=== PATIENT | female | born 1985 | race Caucasian/White ===

== ENCOUNTER 2018-11-27 19:15 | Inpatient (IN) | payer OTHER, SELFPAY ==
[2018-11-27 18:55] VITALS: BMI 23.9
[2018-11-27 20:09] LABS: Mean Corp Hgb Conc 32.4 g/gl (32-36); Mean Corpuscular Hgb 29.1 pg (27.0-32.0); Mean Corpuscular Volume 89.9 fL (81-99); Mean Platelet Vol. 10.6 fl (6.2-12.0); Platelet Count 175 K/mm3 (150-450); RBC Distribution Width CV 13.9 % (11.6-14.6); RBC Distribution Width SD 45.6 fl (35.1-43.9); Red Blood Count 3.78 M/mm3 (4.2-5.4); White Blood Count 10.1 K/mm3 (4.4-11.0)
[2018-11-27 20:10] LABS: Scan Indicated on CBC? Y/N NO
[2018-11-27] MEDS: Lactated Ringers 1,000 ML 50 ML IV (22:40)
[2018-11-27] MEDS: Oxytocin 30 units/NS 500 ml 30 UNITS/500 ML IV.SOLN 334 UNITS IV (22:42)
--- NOTE | 2018-11-27 22:56 | PCM.OB.VAG ---
Vaginal Delivery Maternal Presentation: Active Labor 39 4/7 wk early labor Amniotic Membrane Rupture Type: Artificial Amniotic Fluid Description: Clear - very scant fluid Final JOSE: 11/30/18 Gestational age: 39 Weeks and 4 Days Date of Procedure: 11/27/18 Pre-Operative Diagnosis: 39 4/7 wk labor Post-Operative Diagnosis: same Surgery/ Procedure Performed: Spontaneous Vaginal Delivery Type of Anesthesia: None, Local with 1% lidocaine - for repair of laceration Description of Procedure: of a berry viable male over intact perineum to lacerations. Head delivered OSBALDO Nuchal cord x one reduced. shoulders delivered easily. to maternal abdomen. Cord clamped x two and cut. PP exam; 2nd deg vaginal to perineal laceration noted. repaired under 1% lidocaine to hemostatic, intact with 3-0 Vicryl No other repair needed, no other laceration Placenta delivered by spont expulsion. 3V cord, normal appearing, intact with trailing membranes EBL 350 cc Pt and tolerated delivery well. To recovery, stable condition Ray Adarsh counts correct x two. Presentation: Vertex, OSBALDO Placental Delivery Description: Spontaneous Cord Vessel Description: 3 Vessels Nuchal Cord Compression: Without compression Cord Entanglement: Around neck x 1, loose Estimated Blood Loss: 350 A gender: Male (1 minute): 8 (5 minute): 9 Episiotomy Description: None Laceration: Midline, Perineal Extension/lac, Vaginal Extension/lac, 2nd degree Medications given after delivery: IV Pitocin Complications: None
--- NOTE | 2018-11-27 23:04 | PCM.DCVAG ---
Discharge Diet: No Restrictions Discharge Activity: May Shower, May Take a Tub Bath May resume sexual activity in: 4-6 weeks Additional Activity Instructions:: Nothing in the vagina for 4-6 weeks. You may return to work/school in 6 weeks. Additional Instructions: If you experience any of the following, contact your healthcare provider. Bleeding that soaks a pad every hour for 2 hours Fever 100.4 or higher Unrelieved abdominal pain Problems urinating (including inability to urinate or burning while urinating). Visual changes Severe headache Flu-like symptoms Pain or redness in one of both of your breasts Pain, warmth, tenderness or swelling in your legs, especially the calf area Frequent nausea and vomiting Symptoms of depression or anxiety If you experience any of the following, call 911 or go to the nearest Emergency Room. Chest pain Problems breathing Seizure activity Partial or complete paralysis of a body part, slurred speech, weakness or drooping of the face, or a sudden inability to walk or hold your balance Allergies/Adverse Reactions: Allergies No Known Allergies Allergy (Verified 11/27/18 19:50) Medications to take at Discharge Ferrous Sulfate [Iron] 325 mg PO DAILY 11/27/18 Pnv No.95/Ferrous Fum/Folic AC [ Multivitamin Tablet] 1 each PO DAILY 11/27/18 Please Follow Up With: Ashely Lan MD - [phone] When: Call to make an appointment with your doctor in 6 weeks. Primary Care Physician: Hans Costa MD [Primary Care Provider] - Test Results: Test results from this visit will be discussed in further detail at your follow-up appointment, if applicable. Proposed Discharge Date: 11/29/18
--- NOTE | 2018-11-27 23:05 | DCINST_ITS ---
Discharge Diet: No Restrictions Discharge Activity: May Shower, May Take a Tub Bath May resume sexual activity in: 4-6 weeks Additional Activity Instructions:: Nothing in the vagina for 4-6 weeks. You may return to work/school in 6 weeks. Additional Instructions: If you experience any of the following, contact your healthcare provider. * Bleeding that soaks a pad every hour for 2 hours * Fever 100.4 or higher * Unrelieved abdominal pain * Problems urinating (including inability to urinate or burning while urinating). * Visual changes * Severe headache * Flu-like symptoms * Pain or redness in one of both of your breasts * Pain, warmth, tenderness or swelling in your legs, especially the calf area * Frequent nausea and vomiting * Symptoms of depression or anxiety If you experience any of the following, call 911 or go to the nearest Emergency Room. * Chest pain * Problems breathing * Seizure activity * Partial or complete paralysis of a body part, slurred speech, weakness or drooping of the face, or a sudden inability to walk or hold your balance Allergies/Adverse Reactions: Allergies No Known Allergies Allergy (Verified 11/27/18 19:50) Medications to take at Discharge Ferrous Sulfate [Iron] 325 mg PO DAILY 11/27/18 Pnv No.95/Ferrous Fum/Folic AC [ Multivitamin Tablet] 1 each PO DAILY 11/27/18 Please Follow Up With: Ashely Lan MD - [phone] When: Call to make an appointment with your doctor in 6 weeks. Primary Care Physician: Hans Costa MD [Primary Care Provider] - Test Results: Test results from this visit will be discussed in further detail at your follow- up appointment, if applicable. Proposed Discharge Date: 11/29/18
[2018-11-27] MEDS: Oxytocin 30 units/NS 500 ml 30 UNITS/500 ML IV.SOLN 167 UNITS IV (23:12)
[2018-11-28] MEDS: 0.9% Saline Lock 10 ML Syringe IV (00:18)
[2018-11-28] MEDS: Naproxen 250 MG Tablet PO ×3 (00:18→23:15)
[2018-11-28 03:05] VITALS: BP 121/67; PULSE 69; RESP 14; TEMP 36.5
[2018-11-28 07:55] VITALS: BP 119/62; PULSE 82; RESP 16; TEMP 36.8
--- NOTE | 2018-11-28 08:09 | PCM.PN.OB ---
Subjective: PPD#1 Doing well. Some cramping. Has an herbal spray to use to perineum (witch nalini, cucumber extract, glycerol, etc) and asking if ok to use. Nursing. Potential for dischg home today if requests. Planning circumcision. Objective: Lying in bed, resting. NAD - Physical Exam General: Alert, Oriented x3, Cooperative, No apparent distress Neck: Supple Abdomen: Soft - Fundus firm NT at 2 cm inf to umbilicus Neurological: Cranial nerves II-XII grossly intact Psych/Mental Status: Normal Affect Vital Signs Temp Pulse Resp BP 97.7 F L 69 14 121/67 H 11/28/18 03:05 11/28/18 03:05 11/28/18 03:05 11/28/18 03:05 Oxygen Delivery Method Room Air Weight: 61.3 kg Body Mass Index (BMI) 23.9 Intake and Output for Last 24 Hours 11/26/18 11/27/18 11/28/18 23:59 23:59 23:59 Output Total 700 / 700 Balance -700 / -700 Laboratory Tests Past 24 Hrs 11/27/18 11/27/18 19:55 19:55 WBC 10.1 RBC 3.78 L Hgb 11.0 L Hct 34.0 L MCV 89.9 MCH 29.1 MCHC 32.4 RDW 13.9 RDW Differential 45.6 H Plt Count 175 MPV 10.6 Blood Type O POSITIVE Antibody Screen NEGATIVE Medical Necessity - Tobacco Use Smoking Status: Never smoker Assessment/Plan PPD#1 Stable pp. Continue routine care.
[2018-11-28] MEDS: Prenatal Vits Tablet 1 TABLET PO (12:52)
[2018-11-28 12:55] VITALS: BP 111/66; PULSE 82; RESP 20; TEMP 37.2; O2SAT 95
[2018-11-28] MEDS: Acetaminophen 500 MG Tablet 1000 MG PO (13:25)
[2018-11-28 16:20] VITALS: BP 118/54; PULSE 87; RESP 16; TEMP 37.2
[2018-11-28 19:36] VITALS: BP 130/57; PULSE 86; RESP 17; TEMP 37.1; O2SAT 98
[2018-11-29 01:49] VITALS: BP 111/64; PULSE 81; RESP 15; TEMP 36.4; O2SAT 95
--- NOTE | 2018-11-29 06:21 | PCM.PN.OB ---
Subjective: PPD#2 Doing well. States happy she stayed last night. Baby is nursing better. Circumcision done. No concerns voiced today. - Physical Exam General: Alert, Oriented x3, Cooperative, No apparent distress HEENT: Atraumatic Neck: Supple Psych/Mental Status: Normal Affect Vital Signs Temp Pulse Resp BP Pulse Ox 97.6 F L 81 15 111/64 95 11/29/18 01:49 11/29/18 01:49 11/29/18 01:49 11/29/18 01:49 11/29/18 01:49 Oxygen Delivery Method Room Air Weight: 61.3 kg Body Mass Index (BMI) 23.9 Intake and Output for Last 24 Hours 11/27/18 11/28/18 11/29/18 23:59 23:59 23:59 Output Total 700 / 700 Balance -700 / -700 Medical Necessity - Tobacco Use Smoking Status: Never smoker Assessment/Plan PPD#2 Stable pp. Discharge home today. RTO in 6 wk for pp check, prn sooner.
[2018-11-29] MEDS: Naproxen 250 MG Tablet PO (07:39)
[2018-11-29 08:12] VITALS: BP 116/68; PULSE 80; RESP 16; TEMP 36.6; O2SAT 97
== END 2018-11-29 09:20 | disposition home or self-care (01) | DRG 807 ==
LOC: WPOUT 19:21
PROVIDERS: Admitting Provider Obstetrics & Gynecology; Family Provider Family Medicine; PCP Family Medicine; Referring Provider Obstetrics & Gynecology; Visit Provider Obstetrics & Gynecology
DX: O69.81X0 Labor and delivery complicated by cord around neck, without compression, not applicable or unspecified (principal); Z37.0 Single live birth; O70.1 Second degree perineal laceration during delivery; Z3A.39 39 weeks gestation of pregnancy
CPT/HCPCS: 59025; 59050; 85027; 86850; 86900; 99218; J7120; A4216; G0378

== ENCOUNTER → 2019-05-26 12:53 | Outpatient (CLI) | payer OTHER, SELFPAY | PROVIDERS: Family Provider Family Medicine; PCP Family Medicine; Referring Provider Family Medicine; Visit Provider Family Medicine | DX: J02.9 Acute pharyngitis, unspecified (principal) | CPT/HCPCS: 87070 ==

== ENCOUNTER → 2021-08-16 08:57 | Outpatient (CLI) | payer OTHER, SELFPAY ==
[2021-08-16 10:41] LABS: Anion Gap 5 (5-15); BUN 9 mg/dL (7-18); BUN/Creat Ratio 15.7 RATIO (10-20); Calcium,Total 9.2 mg/dL (8.5-10.1); Chloride 105 mmol/L (98-107); Cholesterol 142 mg/dL (200); Creatinine, Serum 0.58 mg/dL (0.55-1.02); EST Glomerular Filtration Rate 126 mL/min (>60); Est Glom Filt Rate - Afr Amer 153 mL/min (>60); Glucose 91 mg/dL (74-106); High Density Lipoprotein 56 mg/dL; Magnesium 2.3 mg/dL (1.6-2.6); Potassium 3.6 mmol/L (3.5-5.1); Sodium Level 137 mmol/L (136-145); Thyroid Stim Hormone (TSH) 1.27 uIU/mL (0.358-3.74); Triglycerides 88 mg/dL; Very Low Density Lipoprotein 18 mg/dL (5-40)
[2021-08-16 10:43] LABS: Vitamin D,25 Hydroxy 32.8 ng/mL
== END ==
PROVIDERS: PCP Family Medicine; Referring Provider Family Medicine; Visit Provider Family Medicine
DX: Z00.00 Encounter for general adult medical examination without abnormal findings (principal)
CPT/HCPCS: 36415; 80048; 80061; 82306; 83735; 84443; 86769

== ENCOUNTER → 2022-12-04 | Outpatient (CLI) | payer BC, SELFPAY ==
--- NOTE | 2022-12-04 14:33 | US_ITS ---
STUDY: ULTRASOUND BREAST - RIGHT REASON FOR EXAM: Female, 37 years old. Pain in the right breast. TECHNIQUE: Axial and longitudinal images of the RIGHT breast were performed with a high resolution ultrasound transducer. # OF IMAGES: 72 COMPARISON: Comparison is made with prior mammogram dated December 04, 2022. FINDINGS: RIGHT Breast: Dense fibroglandular tissue. The upper outer quadrant of the right breast was examined. There are 2, adjacent small benign-appearing axillary lymph nodes. The larger measures 9 mm x 4 mm x 5 mm. At the 9:00 position of the breast at 3 and 4 cm from the nipple. There are 3 small adjacent cysts. The largest measures 1.1 cm x 1.3 cm x 0.4 cm. US/Breast Limited Unilateral IMPRESSION: 3 adjacent subcentimeters cysts at the 9:00 position of the breast ASSESSMENT CATEGORY: BIRADS Category 2: Benign. A letter regarding these results will be sent to the patient by the facility within 30 days. Electronically Signed: Teddy Jones MD at 13:22 EST ,
--- NOTE | 2022-12-04 14:33 | BI_ITS ---
MAMMOGRAPHY - BILATERAL DIAGNOSTIC REASON FOR EXAM: Female, 37 years old. Chronic right breast pain in the deep upper lateral aspect of the breast. PERTINENT HISTORY: Non-contributory. TECHNIQUE: Digital bilateral breast rosa elena (3D mammographic acquisition) in the CC and MLO projections. 2-D mediolateral oblique (MLO) and craniocaudad (CC) views of both breasts were obtained. CAD: Full Field Digital Mammography with Computer Added Detection was performed. COMPARISON: None. Baseline examination. FINDINGS: Breast Composition: The breasts are extremely dense, which lowers the sensitivity of mammography. There are no dominant masses or suspicious calcifications. No other significant abnormalities are identified. BI/DIAG MAMM W/CAD, BILAT IMPRESSION: Negative diagnostic mammogram. With the patient''s history of pain in the deep upper lateral aspect of the right breast, correlation with ultrasound is recommended. ASSESSMENT CATEGORY: BIRADS Category 0: Incomplete. Need additional imaging evaluation. A letter regarding these results will be sent to the patient by the facility within 30 days. Approximately 10% of breast cancers are not detected by mammography. A normal mammogram should not delay biopsy of a clinically suspicious abnormality. Electronically Signed: Teddy Jones MD at 15:18 EST ,
== END | disposition home or self-care (01) ==
PROVIDERS: PCP Family Medicine; Visit Provider Student in an Organized Health Care Education/Training Program
DX: N64.4 Mastodynia (principal); G89.29 Other chronic pain
CPT/HCPCS: 76642; 77062; 77066; G0279

== ENCOUNTER 2023-10-22 16:38 | Emergency (ER) | payer BC, SELFPAY ==
[2023-10-22 16:39] VITALS: BP 117/63; PULSE 88; RESP 18; TEMP 36.2; O2SAT 100; BMI 21.3
--- NOTE | 2023-10-22 17:16 | EDS_ITS ---
HPI History of Present Illness Chief Complaint: Chest Other Informant: patient Onset/Context/Timing Onset: Days Activity at onset: sudden Timing: Continuous Quality: Positive for Aching Location: Left Parasternal Current Severity: Mild Maximum Severity: Mild Worsened By: Movement of Arm and Movement of Torso Relieved By: Remaining Still Associated Symptoms: Negative for Nausea, Vomiting, Diaphoresis, Dyspnea, Cough, Fever or Acid Reflux Narrative Narrative: Healthy 38-year-old female no seen past medical history currently on no medications. Her children were sled riding she went to [facility] and sled and basically got hit by the sled lost her balance and fell forward onto her nose and her chest wall on the ground. This occurred on Thursday. She initially had sternal and left parasternal discomfort now is primarily left parasternal prior to the fall she was feeling fine having no chest pain. This is not associated with exertion is worse with movement of her torso or arms. Denies any trouble breathing. Prior Similar Symptoms: No CVD Risk Factors: Negative for Hypertension, Diabetes, Hypercholesterolemia, Family History 1' </=55 or Smoking PE Risk Factors: Negative for Recent Travel/Surgery, Recent Immobilization, Prior DVT or PE, Cancer or OCP + Smoking + >/=35 TAD Risk Factors: Negative for Marfan's Syndrome PFSH PFSH Medical History no medical history no medical history Home Medications ferrous sulfate 325 mg (65 mg iron) tablet (iron) 325 mg PO DAILY 11/27/18 [History Last Taken 11/27/18] vit no.95-ferrous fumarate 28 mg-folic acid 800 mcg tablet ( Multivitamins) 1 ea PO DAILY 11/27/18 [History Last Taken 11/27/18] Allergy/AdvReac Type Severity Reaction Status Date / Time No Known Allergies Allergy Verified 10/22/23 16:39 Social History Smoking Status: Never smoker ROS ROS ED ROS Narrative Prior to the fall she was having no symptoms now she is having chest wall discomfort. Review of Systems ROS Unobtainable: Denies due to encephalopathy Constitutional Constitutional ED: Denies chills or fever(s) Eyes Eyes: Reports none ENT ENT ED: Denies ear pain Cardiovascular Cardiovascular: Reports chest pain Respiratory/Chest Respiratory/Chest: Denies cough or dyspnea Gastrointestinal Gastrointestinal: Denies abdominal pain Genitourinary Genitourinary ED: Denies dysuria or hematuria Musculoskeletal Musculoskeletal: Denies arthralgias Integumentary Denies abscess Neurologic Neurologic: Denies headache(s) Psychiatric Psychiatric: Denies anxiety or depression Endocrine Endocrinology: Denies cold intolerance Hematologic/Lymphatic Hematologic/Lymphatic: Denies easy bleeding, easy bruising or lymphadenopathy Allergic/Immunologic Allergic/Immunologic ED: Denies mouth swelling, tongue swelling or urticaria EXAM Physical Exam Narrative Exam Narrative: 30-year-old female vital signs are stable afebrile. Pulse ox 100% on room air no signs hypoxia no distress. H EENT exam normal atraumatic. Pupils round re active light. No signs of trauma to her face or scalp. C-spine nontender trachea midline. Full range of motion her neck. Back nontender. Spine nontender. Lungs clear to auscultation bilaterally. Heart regular rhythm rate about 90 no murmur. She has reproducible mild left parasternal and left anterior rib tenderness. There is no crepitance or subcu air there is no bruising on her chest wall there is no mackey on her chest wall. Exam is consistent with a chest wall strain. Abdomen soft nontender. Pelvic girdle intact. Moving all 4 extremities. Nontender. No deformity. Full range of motion. Neurovascular intact. Neurologically she is awake and alert with no focal motor deficits. Const Vital Signs: 10/22/23 16:39 Temperature 97.2 F L Temperature Source Temporal Pulse Rate 88 Respiratory Rate 18 Blood Pressure 117/63 Blood Pressure Mean 81 Pulse Ox 100 Positive well nourished and well developed; Negative for obese, cachectic, contractures or unkempt General Appearance ED: well developed and NAD; Negative for unkempt, cachectic, contractures or pallor Nutritional Appearance: Negative for cachectic or obese HEENT Reports moist mucous membranes normocephalic and atraumatic; Negative for trauma or tenderness Eyes PERRL and EOMs intact bilaterally General Eye ED: Negative for pale conjunctiva, scleral icterus or other Neck no lymphadenopathy, supple and no JVD Chest Wall inspection of chest normal; Negative for palpation of chest normal Chest Narrative: Left parasternal chest wall tenderness. Mild. No crepitance. No subcu air. No bruising or mackey. Chest: tenderness Resp normal respiratory effort and clear to auscultation bilaterally Effort and Inspection: Negative for respiratory distress Auscultation: Negative for rales, rhonchi or wheezes Cardio regular rate, regular rhythm, S1 normal heart sound, S2 normal heart sound and no murmurs Rate: Negative for bradycardia or tachycardic Rhythm: Negative for abnormal rhythm Peripheral Pulses: pulses 2+ throughout GI normal to inspection, nondistended, normoactive bowel sounds, soft to palpation, non-tender, non-distended and no masses Back/Spine no CVA tenderness and no thoracic nor lumbar tenderness General Back: Negative for CVA tenderness Cervical Spine: Negative for cervical spine tenderness Extremity normal to inspection General Extremety ED: Negative for edema, pulses abnormal or tenderness General Extremity: Negative for edema or pulses abnormal Neuro oriented x3 and CN's II-XII intact bilaterally Sensorium / Orientation: awake, alert, oriented to person, oriented to place and oriented to time; Negative for confused, lethargic or stuporous Motor Exam: strength 5/5 throughout Psych mental status grossly normal Appearance: Negative for unkempt Attitude: No agitated Mood & Affect: Negative for depressed, anxious or tearful Skin no rashes or lesions noted and no wounds General Skin Exam: Negative for jaundice or pallor Rashes: No rashes noted Trauma: Negative for abrasion or laceration MDM MDM MDM Narrative Medical decision making narrative: 38-year-old with injury to her chest wall on Thursday. X-ray being obtained. This is not cardiac she does not have any symptoms so she fell and hit her chest on the ground. She has no DVT or PE history or risk factors and again is not back. She has reproducible chest wall pain. Rule out rib fracture or sternal fracture. Repeat exam patient doing well at 5:45 PM. We went over her normal chest x-ray she will be discharged home. Motrin for pain. Increase activity as tolerated follow-up if not improving. History & Record Review Discussion w/independent historian: Patient Additional record(s) reviewed:: Prior inpatient record, Prior outpatient record, Prior ED visit and Prior labs Radiography Chest X-Ray - ED: 2 View, Read by ED Physician, Heart, Lungs, Mediastinum, Bony Structures and No Acute Disease Diagnostic Testing: Chest x-ray, 2 views, AP and lateral, interpreted by myself shows no acute abnormality. No rib fractures no sternal fracture normal cardiac silhouette. Normal mediastinum. Normal lung thompson. No pneumothorax. No pleural effusions. Discharge Plan Triage Chief Complaint: Chest Other ED Provider: David Bolton Dx/Rx/DC Orders Clinical Impression: Chest wall contusion, Fall Instructions: ED Soft Tissue Contusion Prescriptions: No Action PNV cmb#95-ferrous fumarate-FA [ Multivitamins] 1 EACH tablet 1 ea PO DAILY ferrous sulfate [iron] 325 MG tablet 325 mg PO DAILY Primary Care Provider: Hans Costa Referrals: Hans Costa MD [Primary Care Provider] - 1 Week if not improving Activity Restrictions/Additional Instructions: Chest wall contusion. Ice to your chest wall. Motrin for pain and inflammation. Tylenol for pain. This will be sore but should continually improve. Your chest x-ray was normal there is no signs of any broken ribs. 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 Follow-up with your doctor if not improving. Disposition Disposition: Home, Self Care
--- NOTE | 2023-10-22 17:27 | RAD_ITS ---
INDICATION: chest wall minor trauma with sternal pain EXAMINATION/TECHNIQUE: X-RAY - XR Chest 2 Views COMPARISON: None. FINDINGS: LINES/DEVICES: None. LUNGS: No consolidation, edema or effusion. No pneumothorax. MEDIASTINUM AND CARDIOVASCULAR STRUCTURES: Cardiac silhouette not enlarged. Central airways and mediastinal contour are unremarkable. BONES AND SOFT TISSUES: Unremarkable. No evidence of sternal fracture on the lateral view. RAD/Chest PA and Lateral IMPRESSION: No radiographic evidence of acute cardiopulmonary disease. Electronically Signed: Geo Tom MD at 17:53 EST ,
--- OUTSIDE RECORDS SUMMARY | 2023-10-22 17:32 | XMS RPT_ITS | CCD ---
Author Name Unknown Address [address] [place] [address] Organization [facility] Care Team Providers Care Supervisor Print Line Name Role Phone Paulo Cruz Unavailable Hans Stratton MD Primary Care Provider HANS STRATTON Primary Care Unavailable HANS STRATTON Primary Care Unavailable Medications Current Medications Medication Drug Class(es) Dates Sig (Normalized) Sig (Original) amoxicillin 875 mg / clavulanate 125 mg oral tablet (1 source) Penicillin-class Antibacterial Start: 08-25-2022 End: 09-01-2022 take 1 tablet by mouth twice daily amoxicillin-clav ulanic acid (AUGMENTIN) 875-125 mg per tablet Indications: Bacterial sinusitis Take 1 tablet by mouth twice daily for 7 days. 14 tablet 0 08/25/2022 09/01/2022 Active Problems Problem Classification Problem Date Documented Da te Episodic/Chronic Other upper respiratory infections (1 source) Bacterial sinusitis; Translations: [Chronic sinusitis, unspecified] Chronic Results Test Name Value Interpretation Reference Range Facil ity Vital Signs Date Time Vital Sign Value Performing Clinician Gui everett 08-25-2022 09:17-0500 Body temperature 98.29 [degF] Gladys Arenas APRN.WHITE LEAD GRINDER Work Phone: [facility] 08-25-2022 09:17-0500 Body weight 48.72 kg Gladys Arenas APRN.WHITE LEAD GRINDER Work Phone: [facility] 08-25-2022 09:17-0500 Diastolic blood pressure 64 mm[Hg] Gladys Arenas PRESSING DEPARTMENT SUPERVISOR.WHITE LEAD GRINDER Work Phone: [facility] 08-25-2022 09:17-0500 Heart rate 111 /min Gladys Arenas APRN.CYNTHIA Work Phone: [facility] 08-25-2022 09:17-0500 Respiratory rate 18 /min Gladys Arenas APRN.CYNTHIA Work Phone: [facility] 08-25-2022 09:17-0500 SaO2% (BldA) [Mass fraction] 99 % Gladys Arenas APRN.WHITE LEAD GRINDER Work Phone: [facility] 08-25-2022 09:17-0500 Systolic blood pressure 108 mm[Hg] Gladys Arenas APRN.WHITE LEAD GRINDER Work Phone: [facility] Encounters Encounter Date Encounter Type Care Provider Facility Start: 12-18-2022 End: 12-18-2022 [facility] Start: 08-25-2022 End: 08-25-2022 ambulatory [facility] Facility:[facility] Start: 08-25-2022 End: 08-25-2022 Patient encounter procedure Gladys Arenas APRN.CYNTHIA Work Phone: [facility] Plan of Treatment Date Care Activity Detail Author Start: 05-29-2022 Influenza vaccination INFLUENZA (#1) [facility] Start: 09-28-2021 DEPRESSION ASSESSMENT DEPRESSION ASS ESSMENT [facility] Start: 2015 HPV TESTING HPV TESTING [facility] Start: 2006 PAP TESTING PAP TESTING [facility] Start: 2004 Urine microalbumin profile DTAP,TDAP ,TD (1 - Tdap) [facility] Start: 2003 HEPATITIS C SCREENING HEPATITIS C SC MARISELNING [facility] Start: 2003 HIV SCREENING HIV SCREENING [facility] Start: 1985 COVID-19 VACCINE (#1) COVID-19 VACCI NE (#1) [facility] Start: 1985 HEPATITIS B (1 of 3 - 3-dose series) HEPATITIS B (1 of 3 - 3-dose series) [facility] Payers Date Payer Category Payer Unknown SANJEEV RODRIGUEZ SS PPO [id number] 2021-Present [phone] [id number] [place] [address] PPO [id number] 2021 Unknown [id number] Social History Date Type Detail Facility Start: 08-25-2022 Tobacco smoking stat us CTIS Never smoked tobacco [facility] Start: 08-25-2022 Tobacco use and exposure Smokeless tobacco non-user [facility] Start: 08-25-2022 Alcohol intake Not Asked Keith shukla [facility] Start: 1985 Sex Assigned At Not on file [facility] Start: 08-15-2022 End: 08-25-2022 Exposure to SARS-CoV-2 (event) Not sure [facility] Work Phone: Progress note 12-18-2022 Note Date & Type Note Facility 12-18-2022 Note HNO ID: [id number] Author: Lindsay Mckeon LPN Service: ? Author Type: ? Type: Progress Notes Filed: 12/18/2022 8:19 PM Note Text: Ambulatory Ear Lavage Pre-treatment: Warm water Treatment: Both ears Equipment and Irrigation solution and Volume used: Single use syringe with single use irrigation tip Return flow appearance: Yellow Patient tolerated procedure: yes, mild pain d/c irrigation Post-treatment: Post Irrigation Post-treatment: Ear Canal/Tympanic membrane assessed by KEEGAN Brown. Lindsay Mckeon LPN [facility] Progress note 12-18-2022 Note Date & Type Note Facility 12-18-2022 Note HNO ID: [id number] Author: Hanane Brown PA-C Service: ? Author Type: Physician Printer [employer] Type: Progress Notes Filed: 12/18/2022 4:44 PM Note Text: This note was created using MobileWeaverriter. Subjective Nikhil Roy is a 37 year old female. HPI Presents with sore throat, right ear pain, body aches over the past 4 days. Minimal cough. Her son was fighting similar symptoms. No diarrhea or vomiting. She has noticed some postnasal drip as well. Review of Systems Constitutional: Positive for chills and fever. HENT: Positive for ear pain, postnasal drip and sore throat. Negative for ear discharge. Respiratory: Positive for cough. Cardiovascular: Negative. Gastrointestinal: Negative. Genitourinary: Negative. Musculoskeletal: Negative. All other systems reviewed and are negative. No past medical history on file. Current Outpatient Medications Medication Sig Dispense Refill amoxicillin (AMOXIL) 875 mg tablet Take 1 tablet by mouth twice daily for 7 days. 14 tablet 0 No current facility-administered medications for this visit. No past surgical history on file. No family history on file. Social History Tobacco Use Smoking status: Never Smokeless tobacco: Never Objective BP 122/72 Pulse 84 Temp 36.7 ?C (98 ?F) Resp 18 Wt 51.5 kg (113 lb 9.6 oz) LMP 02/22/2015 (Exact Date) SpO2 100% Physical Exam Vitals reviewed. Constitutional: Appearance: Normal appearance. HENT: Head: Normocephalic and atraumatic. Ears: Comments: Bilateral cerumen impactions, unable to be cleared with flushing by MA staff. External auditory canal otherwise shows no otitis externa. TMs not visible. Nose: Nose normal. Mouth/Throat: Mouth: Mucous membranes are moist. Pharynx: Pharyngeal swelling and posterior oropharyngeal erythema present. No oropharyngeal exudate or uvula swelling. Tonsils: No tonsillar exudate or tonsillar abscesses. Cardiovascular: Rate and Rhythm: Normal rate and regular rhythm. Heart sounds: Normal heart sounds. Pulmonary: Effort: Pulmonary effort is normal. Breath sounds: Normal breath sounds. Musculoskeletal: Cervical back: Neck supple. Lymphadenopathy: Cervical: No cervical adenopathy. Skin: General: Skin is warm and dry. Neurological: General: No focal deficit present. Mental Status: She is alert. Assessment and Plan ASSESSMENT/PLAN: 1. Viral URI - ICD9: 465.9, ICD10: J06.9 (primary diagnosis) - Discussed viral etiology and rationale for treatment. - Symptomatic treatment with prn analgesia - Supportive care with fluids and rest Covid testing declined. - STREP A MOLECULAR (POC) 2. Bilateral impacted cerumen - ICD9: 380.4, ICD10: H61.23 And able to clear this with CASH MANAGEMENT OFFICER flushing here. Recommended trying Debrox [id number], may return to have them flushed again in a week. - AMBULATORY EAR LAVAGE/IRRIGATION 3. Otalgia of right ear - ICD9: 388.70, ICD10: H92.01 Unable to visualize the middle ear to rule out an otitis media. Discussed that I will write amoxicillin, recommended waiting a day or 2 to see if it improves with the Debrox. Patient agreeable. Hanane Brown PA-C [facility] Progress note 08-25-2022 Note Date & Type Note Facility 08-25-2022 Note HNO ID: [id number] Author: Gladys Arenas APRN.WHITE LEAD GRINDER Service: ? Author Type: Nurse Practitioner Type: Progress Notes Filed: 08/25/2022 9:41 AM Note Text: Subjective Cough Associated symptoms include ear pain, headaches, sore throat and myalgias. Pertinent negatives include no chest pain, no chills, no shortness of breath and no wheezing. Nikhil Roy is a 37 year old female who presents with one week of cough, sinus congestion, headache, sore throat. Symptoms started with a fever and body aches but those have resolved. She has been taking Oscillo, Advil Cold and Sinus, and Uday Med sinus rinse. Review of Systems Constitutional: Negative for chills and fever. HENT: Positive for congestion, ear pain, sinus pain and sore throat. Respiratory: Positive for cough and sputum production. Negative for shortness of breath and wheezing. Cardiovascular: Negative for chest pain. Gastrointestinal: Negative for diarrhea, nausea and vomiting. Musculoskeletal: Positive for myalgias. Skin: Negative for rash. Neurological: Positive for dizziness and headaches. BP 108/64 Pulse 111 Temp 36.8 ?C (98.3 ?F) Resp 18 Wt 48.7 kg (107 lb 6.4 oz) LMP 02/22/2015 (Exact Date) SpO2 99% No past medical history on file. No past surgical history on file. ALLERGIES Patient has no known allergies. MEDICATIONS No prescriptions on file. No family history on file. Social History Tobacco Use Smoking status: Never Smokeless tobacco: Never Objective Physical Exam Vitals and nursing note reviewed. Constitutional: Appearance: Normal appearance. HENT: Right Ear: Tympanic membrane, ear canal and external ear normal. Left Ear: Tympanic membrane, ear canal and external ear normal. Nose: Nasal tenderness, mucosal edema, congestion and rhinorrhea present. Mouth/Throat: Mouth: Mucous membranes are moist. Pharynx: Oropharynx is clear. Uvula midline. No oropharyngeal exudate or posterior oropharyngeal erythema. Cardiovascular: Rate and Rhythm: Normal rate and regular rhythm. Heart sounds: Normal heart sounds. Pulmonary: Effort: Pulmonary effort is normal. No respiratory distress. Breath sounds: Normal breath sounds. No wheezing or rales. Musculoskeletal: Cervical back: Neck supple. Lymphadenopathy: Cervical: No cervical adenopathy. Skin: General: Skin is warm and dry. Findings: No erythema or rash. Neurological: Mental Status: She is alert. ASSESSMENT/PLAN: 1. Bacterial sinusitis - ICD9: 473.9, 041.9, ICD10: J32.9, B96.89 - Will begin treatment with as per antibiotic as written, see orders - The patient should also be given flonase nasal spray for the first 5-7 days of treatment. - Supportive care with plenty of fluids, rest, and analgesia prn. - AMOXICILLIN 875 MG-POTASSIUM CLAVULANATE 125 MG TABLET - Offered COVID/flu testing. - Follow-up with your PCP in 3-5 days if symptoms have not improved or sooner if symptoms worsen - Discussed red flags and need for immediate medical evaluation if any occur. - Discussed supportive care treatment with fluids, rest and analgesia. - Discussed expected course of illness Gladys Arenas APRN.CNP [facility] Instructions 08-25-2022 Patient Instructions Note Date & Type Note Facility 08-25-2022 Instructions Gladys Arenas APRN.CYNTHIA - 08/25/2022 9:37 AM EST Images from the original note were not included. ASSESSMENT/PLAN: 1. Bacterial sinusitis - ICD9: 473.9, 041.9, ICD10: J32.9, B96.89 - Will begin treatment with as per antibiotic as written, see orders - The patient should also be given flonase nasal spray for the first 5-7 days of treatment. - Supportive care with plenty of fluids, rest, and analgesia prn. - AMOXICILLIN 875 MG-POTASSIUM CLAVULANATE 125 MG TABLET - Offered COVID/flu testing. - Follow-up with your PCP in 3-5 days if symptoms have not improved or sooner if symptoms worsen - Discussed red flags and need for immediate medical evaluation if any occur. - Discussed supportive care treatment with fluids, rest and analgesia. - Discussed expected course of illness Gladys Arenas APRN.CNP Adult Sinusitis Patient Education What is Sinusitis? Sinusitis [nfiw-[id number]-[id number]] is inflammation of the sinuses or swelling of the lining of the sinus cavity or nose. During an infection the sinuses become blocked with fluid causing swelling of the lining of the sinuses. Symptoms: (viral and bacterial infections) Stuffy nose Runny nose Postnasal drip Fever Toothache Headache Tiredness Cough Sore throat Face and head pressure and or pain Common causes: 98% of sinus infections are viral caused by viruses. Risk Factors of Sinusitis Include: Allergies, air pollution, indoor humidity and outdoor temperature changes, andstructural changes in the nose may contribute to sinus pain, pressure and congestion. When to get help? Temperature greater than 100.4 F Symptoms lasting more than 10 days or worsening symptoms greater than 7-10 days. If you do not improve or worsen after a course of antibiotics, you should be re-examined. Diagnosis and Treatment: Your healthcare provider will ask a number of questions about your symptoms and how long they have occurred. If symptoms of sinusitis persist greater than 10 days, it is possible you have a bacterial sinus infection and an antibiotic is prescribed. If it is viral, antibiotics will not help. You may be instructed to take [id number] medications for symptoms. including fever reducers acetaminophen or ibuprofen, nasal saline spray, cough and cold preparations and decongestants as prescribed by the physician, nurse practitioner or physician assistant finance director. Self-Care and Prevention: Rest Fluids for hydration Good hand washing Humidifier Avoid smoking and exposure to second hand smoke Avoid sick contacts documented in this encounter [facility] History of Present illness Narrative 08-25-2022 Gladys Arenas APRN.CNP - 08/25/2022 9:27 AM EST Note Date & Type Note Facility 08-25-2022 History of Presen t illness Narrative Subjective Cough Associated symptoms include ear pain, headaches, sore throat and myalgias. Pertinent negatives include no chest pain, no chills, no shortness of breath and no wheezing. Nikhil Roy is a 37 year old female who presents with one week of cough, sinus congestion, headache, sore throat. Symptoms started with a fever and body aches but those have resolved. She has been taking Oscillo, Advil Cold and Sinus, and Uday Med sinus rinse. Review of Systems Constitutional: Negative for chills and fever. HENT: Positive for congestion, ear pain, sinus pain and sore throat. Respiratory: Positive for cough and sputum production. Negative for shortness of breath and wheezing. Cardiovascular: Negative for chest pain. Gastrointestinal: Negative for diarrhea, nausea and vomiting. Musculoskeletal: Positive for myalgias. Skin: Negative for rash. Neurological: Positive for dizziness and headaches. BP 108/64 Pulse 111 Temp 36.8 C (98.3 F) Resp 18 Wt 48.7 kg (107 lb 6.4 oz) LMP 02/22/2015 (Exact Date) SpO2 99% No past medical history on file. No past surgical history on file. ALLERGIES Patient has no known allergies. MEDICATIONS No prescriptions on file. No family history on file. Social History Tobacco Use Smoking status: Never Smokeless tobacco: Never Objective Physical Exam Vitals and nursing note reviewed. Constitutional: Appearance: Normal appearance. HENT: Right Ear: Tympanic membrane, ear canal and external ear normal. Left Ear: Tympanic membrane, ear canal and external ear normal. Nose: Nasal tenderness, mucosal edema, congestion and rhinorrhea present. Mouth/Throat: Mouth: Mucous membranes are moist. Pharynx: Oropharynx is clear. Uvula midline. No oropharyngeal exudate or posterior oropharyngeal erythema. Cardiovascular: Rate and Rhythm: Normal rate and regular rhythm. Heart sounds: Normal heart sounds. Pulmonary: Effort: Pulmonary effort is normal. No respiratory distress. Breath sounds: Normal breath sounds. No wheezing or rales. Musculoskeletal: Cervical back: Neck supple. Lymphadenopathy: Cervical: No cervical adenopathy. Skin: General: Skin is warm and dry. Findings: No erythema or rash. Neurological: Mental Status: She is alert. ASSESSMENT/PLAN: 1. Bacterial sinusitis - ICD9: 473.9, 041.9, ICD10: J32.9, B96.89 - Will begin treatment with as per antibiotic as written, see orders - The patient should also be given flonase nasal spray for the first 5-7 days of treatment. - Supportive care with plenty of fluids, rest, and analgesia prn. - AMOXICILLIN 875 MG-POTASSIUM CLAVULANATE 125 MG TABLET - Offered COVID/flu testing. - Follow-up with your PCP in 3-5 days if symptoms have not improved or sooner if symptoms worsen - Discussed red flags and need for immediate medical evaluation if any occur. - Discussed supportive care treatment with fluids, rest and analgesia. - Discussed expected course of illness Gladys Arenas APRN.CYNTHIA documented in this encounter [facility] Evaluation note Note Date & Type Note Facility documented in this encounter [facility] Summary Purpose Family History No Family History Records Found Advance Directives No Advanced Directives Records Found Additional Source Comments Source Comments (unrecognize d section and content) In the event this informatio n is protected by the Federal Confidentiality of Alcohol and Drug Abuse Patient Records regulations: The Federal rules restrict any use of the information to criminally investigate or prosecute any alcohol or drug abuse patient.[facility] Reason for Visit (unrecogniz ed section and content) Care Teams (unrecognized sec tion and content) INFORMATION SOURCE (unrecogn ized section and content) FOR RECORDS PERTAINING TO PATIENTS WHO ARE OR HAVE BEEN ENROLLED IN A CHEMICAL DEPENDENCY/SUBSTANCEABUSE PROGRAM, SOME INFORMATION MAY BE OMITTED. This clinical summary was aggregated from multiple sources. Caution should be exercised in using it in the provision of clinical care. This summary normalizes information from multiple sources, and as a consequence, information in this document may materially change the coding, format and clinical context of patient data. In addition, data may be omitted in some cases. CLINICAL DECISIONS SHOULD BE BASED ON THE PRIMARY CLINICAL RECORDS. [facility]. provides no warranty or guarantee of the accuracy or completeness of information in this document.
[2023-10-22 18:13] VITALS: BP 106/67; PULSE 87; RESP 17; O2SAT 98
[2023-10-22 18:16] VITALS: BP 111/61; PULSE 63; RESP 16; O2SAT 98
== END 2023-10-22 18:19 | disposition home or self-care (01) ==
PROVIDERS: Emergency Provider Emergency Medicine; PCP Family Medicine; Visit Provider Emergency Medicine
DX: S20.20XA Contusion of thorax, unspecified, initial encounter (principal); W19.XXXA Unspecified fall, initial encounter
CPT/HCPCS: 71046; 99282